=== PATIENT | male | born 1960 | race Caucasian/White ===

== ENCOUNTER 2020-03-10 10:15 | Emergency (ER) | payer MEDICARE ==
[~2020-03-10] VITALS: Ht 172.7 cm; Wt 83.9 kg
[2020-03-10] MEDS ORDERED: MORPHINE SULFATE INJ 2 MG/ML DISP.SYRIN ONE ×3 (10:49→13:21)
[2020-03-10] MEDS ORDERED: ONDANSETRON HCL/PF 4 MG/2 ML VIAL ONE ×2 (10:49→13:21)
[2020-03-10 10:50] LABS: BASOPHILS # (AUTO) 0.1 /CMM (0.0-0.2); BASOPHILS % (AUTO) 0.8 % (0.0-2.0); HEMATOCRIT 43 % (39-51); HEMOGLOBIN 14.7 g/dL (13.5-17.5); LYMPHOCYTES # (AUTO) 1.1 /CMM (0.8-4.8); MEAN CORPUSCULAR HGB CONC 34 g/dl (31.0-36.0); MEAN CORPUSCULAR VOLUME 92 fL (80-96); MONOCYTES # (AUTO) 0.5 /CMM (0.1-1.30); MONOCYTES % (AUTO) 6.1 % (2.0-12.0); NEUTROPHILS # (AUTO) 5.7 /CMM (1.8-8.9); NEUTROPHILS % (AUTO) 76.1 % (43.0-81.0); PLATELET COUNT (AUTO) 204 /CMM (150-450); RED BLOOD CELL COUNT(AUTO) 4.72 MIL/uL (4.5-6.0); WHITE BLOOD COUNT (AUTO) 7.5 K/uL (4.3-11.0)
[2020-03-10] MEDS: ONDANSETRON HCL/PF 4 MG/2 ML VIAL IVP ONE (10:50)
[2020-03-10] MEDS: MORPHINE SULFATE INJ 2 MG/ML DISP.SYRIN IV ONE ×3 (10:50→13:32)
[2020-03-10] MEDS: IV NS 0.9% 1,000 ML BAG IV ONE (10:50)
[2020-03-10 10:58] LABS: CALCIUM, SERUM 10.6 mg/dL (8.5-10.1); CARBON DIOXIDE 24 mmol/L (21-32); CHLORIDE 100 mmol/L (98-107); CREATININE 1.2 mg/dL (0.6-1.3); GLUCOSE 146 mg/dL (74-106); POTASSIUM 3.7 mmol/L (3.5-5.1); SODIUM SERUM 137 mmol/L (136-145); UREA NITROGEN, BLOOD 14 mg/dL (7-18)
[2020-03-10 11:04] LABS: ALANINE AMINOTRANSFERASE 28 U/L (12-78); ALBUMIN 4.1 g/dL (3.4-5.0); ALKALINE PHOSPHATASE 93 U/L (46-116); ASPARTATE AMINOTRANSFERASE 21 U/L (15-37); BILIRUBIN,DIRECT 0.2 mg/dL (0.0-0.2); BILIRUBIN,TOTAL 1.1 mg/dL (0.2-1.0); LIPASE 84 U/L (73-393); TOTAL PROTEIN, SERUM 8.6 g/dL (6.4-8.2)
--- NOTE | 2020-03-10 11:11 | NUR ---
RECEIVED A CALL FROM LAB ([facility]) REGARDING LACTIC ACID OF 2.2 , DR THAKUR NOTIFIED , AWARE
--- NOTE | 2020-03-10 11:30 | NUR ---
PT WAS STILL COMPLAINING OF PAIN AFTER 4MG MORPHINE GIVEN. MD MADE AWARE. PER MD GIVE MORPHINE 6MG VIA IV NOW. NOTED AND CARRIED OUT.
[2020-03-10] MEDS ORDERED: MORPHINE SULFATE INJ 4 MG/ML DISP.SYRIN ONE (11:35)
--- NOTE | 2020-03-10 11:59 | NUR ---
PT OUT FOR CT
--- NOTE | 2020-03-10 12:07 | NUR ---
PT BACK FROM CT
--- NOTE | 2020-03-10 12:37 | NUR ---
Byron warren in EDM - 03/10/20 at 1239 by LASHAWN Patient discharged to home in stable condition. Written and verbal after care instructions given. Patient verbalizes understanding of instruction. pt got picked up by [facility] with 2 animal caretaker supervisor, pt will be going back to his apartment
[2020-03-10] MEDS: ONDANSETRON HCL/PF 4 MG/2 ML VIAL IV ONE (13:32)
[2020-03-10] MEDS ORDERED: LORAZEPAM INJ 2 MG/ML VIAL ONE (13:54)
[2020-03-10] MEDS: LORAZEPAM INJ 2 MG/ML VIAL IV ONE (13:57)
--- NOTE | 2020-03-10 14:15 | NUR ---
Patient discharged to home in stable condition. Written and verbal after care instructions given to pt and daughter who was by bedside. Patient and daughter verbalizes understanding of instruction. IV removed. Catheter intact and site benign. Pressure and 4x4 applied to site. No bleeding noted.
[2020-03-10 14:16] VITALS: BP 168/103
== END 2020-03-10 14:29 | disposition home or self-care (01) ==
LOC: ER 10:21
DX: R10.32 Left lower quadrant pain (principal); R11.2 Nausea with vomiting, unspecified
CPT/HCPCS: 36415; 74176; 80048; 80076; 83605 ×2; 83690; 85025; 96361; 96374; 96375; 96376; 99284; J2060; J2270 ×4; J2405 ×2; J7030

== ENCOUNTER 2021-02-04 09:39 | Emergency (ER) | payer MEDICARE, OTHER ==
[~2021-02-04] VITALS: Ht 172.7 cm; Wt 93.0 kg
--- NOTE | 2021-02-04 09:49 | NUR ---
Patient came in to the er c/o R shoulder pain possible dislocation while walking the dog, 4/10 pain scale. on room air, breathing evenly and unlabored. Kerpt comfortable, will continue to monitor accordingly.
--- NOTE | 2021-02-04 09:52 | NUR ---
SEEN AND EXAMINED BY .
[2021-02-04] MEDS ORDERED: ACETAMINOPHEN ES 500 MG TABLET ONE (09:57)
[2021-02-04] MEDS ORDERED: ACETAMINOPHEN ES 500 MG TABLET PO ONE (10:00)
--- NOTE | 2021-02-04 10:05 | NUR ---
TONGUER AT BEDSIDE FOR XRAY.
--- NOTE | 2021-02-04 10:36 | NUR ---
CALLED KEISHA. ITS BEING READ.
[2021-02-04 10:55] VITALS: BP 135/77
--- NOTE | 2021-02-04 10:56 | NUR ---
Patient discharged to home in stable condition. Written and verbal after care instructions given. Patient verbalizes understanding of instruction.
== END 2021-02-04 10:56 | disposition home or self-care (01) ==
LOC: ER 09:44
DX: M25.511 Pain in right shoulder (principal); W19.XXXA Unspecified fall, initial encounter; Y93.K1 Activity, walking an animal; Y92.89 Other specified places as the place of occurrence of the external cause; Y99.8 Other external cause status
CPT/HCPCS: 73030-TC; 73060-TC

== ENCOUNTER 2021-08-12 08:09 | Emergency (ER) | payer MEDICARE, OTHER ==
[~2021-08-12] VITALS: Ht 172.7 cm; Wt 86.2 kg
[2021-08-12 08:18] VITALS: BP 164/94
--- NOTE | 2021-08-12 08:23 | NUR ---
AT BEDSIDE FOR EVAL.
--- NOTE | 2021-08-12 08:34 | NUR ---
INSTALL AND REPAIR TECHNICIAN AT BEDSIDE FOR XRAY.
== END 2021-08-12 10:01 | disposition home or self-care (01) ==
LOC: ER 08:13
DX: M25.511 Pain in right shoulder (principal); Z87.39 Personal history of other diseases of the musculoskeletal system and connective tissue; W18.30XA Fall on same level, unspecified, initial encounter; Y93.01 Activity, walking, marching and hiking; Y92.89 Other specified places as the place of occurrence of the external cause; Y99.8 Other external cause status
CPT/HCPCS: 73030-TC

== ENCOUNTER 2021-11-12 08:31 | Emergency (ER) | payer MEDICARE, OTHER ==
[~2021-11-12] VITALS: Ht 172.7 cm; Wt 85.3 kg
--- NOTE | 2021-11-12 08:40 | NUR ---
TO ER BED 7. TESTED (+) TO COVID 19 3 DAYS AGO,HAVING DIFFICULTY URINATING,O2SAT 80'2 AT HOME,FEEL "SICK" THIS MORNING. ATTCHED TO MONITOR, NO RESP DISTRESS NOTED. AWAITING MD ESPINAL.
--- NOTE | 2021-11-12 09:59 | NUR ---
IV ESTABLHISHED L HAND 20G. LABS DRAWN AND COLLECTED AT BEDSIDE
[2021-11-12] MEDS ORDERED: IV NS 0.9% 1,000 ML IV ONE (10:00)
[2021-11-12 10:14] LABS: BASOPHILS % (AUTO) 0.6 % (0.0-2.0); EOSINOPHILS % (AUTO) 1.5 % (0.0-6.0); HEMATOCRIT 41 % (39-51); HEMOGLOBIN 13.9 g/dL (13.5-17.5); LYMPHOCYTES # (AUTO) 0.8 K/uL (0.8-4.8); LYMPHOCYTES % (AUTO) 19.7 % (20.0-44.0); MEAN CORPUSCULAR HGB CONC 34 g/dl (31.0-36.0); MEAN CORPUSCULAR VOLUME 90 fL (80-96); MONOCYTES # (AUTO) 0.6 K/uL (0.1-1.30); MONOCYTES % (AUTO) 13.4 % (2.0-12.0); NEUTROPHILS # (AUTO) 2.7 K/uL (1.8-8.9); NEUTROPHILS % (AUTO) 64.8 % (43.0-81.0); PLATELET COUNT (AUTO) 145 K/uL (150-450); RED BLOOD CELL COUNT(AUTO) 4.52 MIL/uL (4.5-6.0); WHITE BLOOD COUNT (AUTO) 4.2 K/uL (4.3-11.0)
[2021-11-12 10:38] LABS: BILIRUBIN,TOTAL 1.7 mg/dL (0.2-1.0); CREATININE 1.7 mg/dL (0.6-1.3); TOTAL PROTEIN, SERUM 8.6 g/dL (6.4-8.2)
--- NOTE | 2021-11-12 11:24 | NUR ---
PATIENT STILL UNABLE TO PROVIDE URINE SAMPLE
--- NOTE | 2021-11-12 13:00 | NUR ---
URINE SAMPLE SENT TO LAB
[2021-11-12 14:09] LABS: BILIRUBIN,URINE NEGATIVE (NEGATIVE); COLOR,URINE DARK YELLOW (YELLOW); LEUKOCYTE ESTERASE ,URINE NEGATIVE (NEGATIVE); NITRITE, URINE NEGATIVE (NEGATIVE); PROTEIN,URINE TRACE mg/dl (NEGATIVE); UGLUCOSE NEGATIVE (NEGATIVE)
[2021-11-12 14:17] LABS: RBC,URINE NONE SEEN /HPF (0-2)
[2021-11-12 14:18] LABS: BACTERIA,URINE None seen /HPF (None Seen); CALCIUM CARBONATE CRYSTALS,UR Rare /HPF (None Seen)
[2021-11-12 14:57] VITALS: BP 133/82
--- NOTE | 2021-11-12 14:57 | NUR ---
IV removed. Catheter intact and site benign. Pressure and 4x4 applied to site. No bleeding noted. Patient discharged to home in stable condition. Written and verbal after care instructions given. Patient verbalizes understanding of instruction.
== END 2021-11-12 14:57 | disposition home or self-care (01) ==
LOC: ER 08:34
DX: U07.1 COVID-19 (principal); R53.1 Weakness
CPT/HCPCS: 36415; 80053; 81001; 85025; 96360; 99283; J7030

== ENCOUNTER 2022-01-29 16:41 | Emergency (ER) | payer MEDICARE, OTHER ==
[~2022-01-29] VITALS: Ht 172.7 cm; Wt 88.0 kg
[2022-01-29] MEDS ORDERED: ALTEPLASE 100 MG/VIAL VIAL IV ONE ×2 (16:44→17:30)
--- NOTE | 2022-01-29 16:49 | NUR ---
YASH W/ C/O SUDDEN RUE WEAKNESS AT 1610 WHILE WATCHING HIS GRANDSON PER EMS REPORT. TO ER BE 1. PT ATTACHED TO MONITOR.
--- NOTE | 2022-01-29 16:50 | NUR ---
CODE STROKE ACTIVATED
[2022-01-29] MEDS ORDERED: IOHEXOL-350 100 ML VIAL IV ONE (16:53)
[2022-01-29] MEDS ORDERED: IV NS 0.9% 250 ML IV ONE (16:53)
--- NOTE | 2022-01-29 16:55 | NUR ---
PT TAKEN TO RADIOLOGY FOR CT
[2022-01-29] MEDS ORDERED: IV NS 0.9% 1,000 ML BAG IV ONE (17:00)
[2022-01-29 17:13] LABS: BASOPHILS # (AUTO) 0.1 K/uL (0.0-0.2); BASOPHILS % (AUTO) 0.9 % (0.0-2.0); EOSINOPHILS % (AUTO) 2.7 % (0.0-6.0); HEMATOCRIT 38 % (39-51); HEMOGLOBIN 12.9 g/dL (13.5-17.5); LYMPHOCYTES # (AUTO) 1.8 K/uL (0.8-4.8); LYMPHOCYTES % (AUTO) 26.8 % (20.0-44.0); MEAN CORPUSCULAR HGB CONC 34 g/dl (31.0-36.0); MEAN CORPUSCULAR VOLUME 92 fL (80-96); MONOCYTES # (AUTO) 0.5 K/uL (0.1-1.30); MONOCYTES % (AUTO) 7.5 % (2.0-12.0); NEUTROPHILS # (AUTO) 4.2 K/uL (1.8-8.9); NEUTROPHILS % (AUTO) 62.1 % (43.0-81.0); PLATELET COUNT (AUTO) 174 K/uL (150-450); RED BLOOD CELL COUNT(AUTO) 4.18 MIL/uL (4.5-6.0); WHITE BLOOD COUNT (AUTO) 6.7 K/uL (4.3-11.0)
--- NOTE | 2022-01-29 17:16 | NUR ---
CALLED TE[facility] NEURO SPOKE TO STATES [facility]IN NEURO MD WADDELL WILL CONTACT ER MD SOON POSSIBLE
[2022-01-29 17:28] LABS: CARBON DIOXIDE 26 mmol/L (21-32); CHLORIDE 104 mmol/L (98-107); CREATININE 1.9 mg/dL (0.6-1.3); GLUCOSE 114 mg/dL (74-106); POTASSIUM 3.6 mmol/L (3.5-5.1); SODIUM SERUM 139 mmol/L (136-145); UREA NITROGEN, BLOOD 26 mg/dL (7-18)
[2022-01-29] MEDS ORDERED: ALTEPLASE BOLUS DOSE IV ONE (17:30)
--- NOTE | 2022-01-29 17:31 | NUR ---
CALLED [facility] SPOKE TO RANCHO MORAN, FAXED FACESHEET AND CLINICALS
[2022-01-29 17:33] LABS: ALANINE AMINOTRANSFERASE 22 U/L (12-78); ALBUMIN 3.9 g/dL (3.4-5.0); ALKALINE PHOSPHATASE 86 U/L (46-116); ASPARTATE AMINOTRANSFERASE 18 U/L (15-37); BILIRUBIN,DIRECT 0.2 mg/dL (0.0-0.2); BILIRUBIN,TOTAL 0.8 mg/dL (0.2-1.0); TOTAL PROTEIN, SERUM 7.7 g/dL (6.4-8.2)
[2022-01-29] MEDS ORDERED: PANT40TA49 PO (17:45)
[2022-01-29] MEDS ORDERED: LOSA25TA27 PO (17:45)
[2022-01-29] MEDS ORDERED: METO-357 PO (17:45)
[2022-01-29] MEDS ORDERED: CELE-85 PO (17:45)
--- NOTE | 2022-01-29 18:00 | NUR ---
[facility]OS RN SPEAKING WITH [employer] LOADER GENER
--- NOTE | 2022-01-29 18:05 | NUR ---
CHARGE NURSE GAVE REPORT TO LAINEY
--- NOTE | 2022-01-29 18:06 | NUR ---
REPORT GIVEN TO [facility] TRANSPORT TEAM,ETA LESS THAN 40 MINUTES,PATIENT AND DAUGHTER AT BEDSIDE MADE AWARE
--- NOTE | 2022-01-29 18:38 | NUR ---
NEURO ASSESSMENT DONE PRIOR TO TPA ADMINISTRATION. VS TAKEN AND RECORDED. TPA BOLUS ADMINISTERED INDICATED.
--- NOTE | 2022-01-29 18:39 | NUR ---
TPA DRIP INITIATED INDICATED.
--- NOTE | 2022-01-29 18:52 | NUR ---
DR PADILLA MADE AWARE OF PT'S CURRENT BP W/ ORDER FOR LABETALOL 10MG IV, ORDER IS READ BACK AND VERIFIED.
[2022-01-29] MEDS ORDERED: LABETALOL HCL IV 100MG VIAL ONE (18:53)
[2022-01-29 18:54] VITALS: BP 177/84
--- NOTE | 2022-01-29 18:54 | NUR ---
LABETALOL 10MG IVP GIVEN INDICATED. [facility] TRANSPORT TEAM AT BEDSIDE TO PICKUP PT; BEDSIDE ENDORSEMENT DONE. TRANSFER DOCUMENTS PROVIDED TO [facility]. PT NOT IN ACUTE DISTRESS, AWAKE AND VERBALLY RESPONSIVE; STATES THAT RUE IS MORE MOVABLE W/ LESS WEAKNESS NOTED.
[2022-01-29] MEDS ORDERED: LABETALOL 20 MG/4 ML VIAL IV ONE (19:00)
== END 2022-01-29 19:13 | disposition short-term general hospital (02) ==
LOC: ER 16:43
DX: I63.9 Cerebral infarction, unspecified (principal); G83.21 Monoplegia of upper limb affecting right dominant side; R29.702 NIHSS score 2; Z20.822 Contact with and (suspected) exposure to COVID-19; Z87.828 Personal history of other (healed) physical injury and trauma
CPT/HCPCS: 99291; 70498; 96365; 96360; 71045; 96375; 87426; 93005; 70496; 85025; 80048; 80076; 36415; 84484; 85730; 82962; 70450; J2997; J3490 ×2; J7030 ×2; J7050 ×2; J7040; Q9967; C9803